=== PATIENT | male | born 1990 | race Caucasian/White ===

== ENCOUNTER → 2021-09-19 | Outpatient (CLI) | payer SELFPAY ==
[~2021-09-19] MED LIST: ADVIL200 MG PO; AMOXICILLIN 50500 MG PO; CLEOCIN HC150 MG/CAP PO; NORCO 325 MG-51 TAB PO; PENICILLIN-VK500 M1 PO; ULTRAM 50MG TAB50 MG PO
== END ==
LOC: LAB 18:45
DX: R36.9 Urethral discharge, unspecified (principal)